=== PATIENT | male | born 1950 | race Caucasian/White ===

== ENCOUNTER 2017-12-25 16:02 | Inpatient (IN) | payer OTHER ==
--- NOTE | 2017-12-25 16:35 | PDOC ---
Rapid Medical Evaluation Time Seen by Provider: 12/25/17 16:32 Medical Evaluation: Allergies Allergy/AdvReac Type Severity Reaction Status Date / Time morphine Allergy Severe Swelling Verified 12/25/17 16:32 12/25/17 16:32 Pt c/o: requesting etoh detox Pt on exam: intoxicated, Pt ordered for: tachy 108 radial pulse P to proceed to ED Discharge Disposition - Diagnosis Alcohol dependence - Referrals - Patient Instructions - Post Discharge Activity
--- NOTE | 2017-12-25 17:45 | PDOC ---
History of Present Illness - History of Present Illness Initial Comments: 12/25/17 18:08 Patient is a 67 M, with PMHx of cancer of the large intestine/cecum (in remission), depression, chronic EtOH abuse, who presents today for acute EtOH withdrawal. Patient states that he drinks daily morning, noon, and night, anything from rum, vodka, and heineken. Patient states that his last alcoholic beverage was around 10 hours ago. He states that he came to the ER today seeking detox. Denies past history of HTN, high cholesterol, diabetes. Social Hx: daily EtOH abuse (at least 3x/day), occasional tobacco and marijuana use. PCP: Anjel Denise ([facility]) Allergies: morphine <Trish Gibbs - Last Filed: 12/25/17 18:56> <Bruce Cortes - Last Filed: 12/25/17 21:01> - General Chief Complaint: Alcohol intoxication Stated Complaint: DETOX Time Seen by Provider: 12/25/17 16:32 Past History <Trish Gibbs - Last Filed: 12/25/17 18:56> - Past Medical History Anemia: Yes (on ferous sulfate once a day) Asthma: No Cancer: Yes (cancer of coecum s/p right hemicolectomy in 2003) Cardiac Disorders: No CVA: No COPD: No CHF: No Dementia: No Diabetes: No GI Disorders: No Disorders: No HTN: No Hypercholesterolemia: No Kidney Stones: No Liver Disease: No Seizures: No Thyroid Disease: No - Surgical History Abdominal Surgery: Yes (s/p right hemicolectomy for cancer of coecum in 2003) Appendectomy: No Cardiac Surgery: No Cholecystectomy: No Lung Surgery: No Neurologic Surgery: No Orthopedic Surgery: No - Reproductive History Testicular Surgery: No - Suicide/Smoking/Psychosocial Hx Smoking History: Never smoked Number of Cigarettes Smoked Daily: 4 Information on smoking cessation initiated: Yes Hx Alcohol Use: Yes Drug/Substance Use Hx: No Substance Use Type: Alcohol Hx Substance Use Treatment: Yes ([facility] 10/25/14 TO 10/30/14) <Bruce Cortes - Last Filed: 12/25/17 21:01> - Past Medical History Allergies/Adverse Reactions: Allergies Allergy/AdvReac Type Severity Reaction Status Date / Time morphine Allergy Severe Swelling Verified 12/25/17 16:32 Home Medications: Ambulatory Orders Quetiapine Fumarate [Seroquel -] 12.5 mg PO HS 12/25/17 Review of Systems - Review of Systems Comments:: 12/25/17 18:09 CONSTITUTIONAL: No fever, no chills, no fatigue EYES: No visual changes ENT: No ear pain, no sore throat CARDIOVASCULAR: No chest pain, no palpitations RESPIRATORY: No cough, no SOB GI: No abdominal pain, no nausea, no vomiting, no constipation, no diarrhea GENITOURINARY: No dysuria, no frequency, no hematuria MUSKULOSKELETAL: No back pain, no joint pain, no myalgias SKIN: No rash NEURO: No headache <Trish Gibbs - Last Filed: 12/25/17 18:56> *Physical Exam - Vital Signs Last Vital Signs Temp Pulse Resp BP Pulse Ox 97.5 F L 132 H 20 135/81 96 12/25/17 16:32 12/25/17 16:32 12/25/17 16:32 12/25/17 16:32 12/25/17 16:32 - Physical Exam Comments: 12/25/17 18:56 CONSTITUTIONAL: Awake. Alert, mildly tremulous. Anxious appearing HEAD: Normocephalic; atraumatic EYES: PERRL; EOM intact ENT: External appears normal; normal oropharynx. Poor dentition. Dry mucosa. NECK: Supple; nontender; no cervical lymphadenopathy CARD: Tachycardic. Normal S1, S2; no murmurs, rubs, or gallops RESP: Normal chest excursion with respiration; breath sounds clear and equal bilaterally; no wheezes, rhonchi, or rales ABD: Soft, non-distended; non-tender; no palpable organomegaly, no palpable hernias EXT: Normal ROM in all four extremities; non-tender to palpation; distal pulses intact SKIN: Warm, dry, no rash NEURO: No focal neurological deficiencies <Trish Gibbs - Last Filed: 12/25/17 18:56> - Vital Signs Last Vital Signs Temp Pulse Resp BP Pulse Ox 97.5 F L 132 H 20 135/81 96 12/25/17 16:32 12/25/17 16:32 12/25/17 16:32 12/25/17 16:32 12/25/17 16:32 <Bruce Cortes - Last Filed: 12/25/17 21:01> Heart Score/ECG Review - ECG Intrepretation Comment:: 12/25/17 18:01 Sinus tachycardia Vent. rate 122 bpm <Trish Gibbs - Last Filed: 12/25/17 18:56> ED Treatment Course - LABORATORY CBC & Chemistry Diagram: 12/25/17 18:24 12/25/17 18:24 <Trish Gibbs - Last Filed: 12/25/17 18:56> - LABORATORY CBC & Chemistry Diagram: 12/25/17 18:24 12/25/17 18:24 <Bruce Cortes - Last Filed: 12/25/17 21:01> Medical Decision Making - Medical Decision Making 12/25/17 19:05 Patient is 67-year-old male who presents to the ER with signs and symptoms of acute alcohol withdrawal. Patient's tremulous and tachycardic. Last: Drank was more than 10 hours prior to arrival. Will administer benzodiazepines for alcohol withdrawal, will hydrate, we'll administer multivitamins, folic acid and thiamine; we'll obtain CBC/CMP/magnesium/EKG/chest x-ray. Will consider inpatient admission for acute alcohol withdrawal. 12/25/17 20:57 Patient reassessed. Patient is less tachycardic and less tremulous. CBC reveals minimal leukocytosis with predominance of neutrophils. CMP reveals decreased sodium bicarbonate and increased anion gap with normal glucose and elevated alcohol Level likely consistent with alcoholic ketoacidosis. Patient received D5NS and will continue receiving dextrose containing fluids. Will continue administering Ativan for alcohol withdrawal. Given patient's history of DTs in the past he will require inpatient admission. <Bruce Cortes - Last Filed: 12/25/17 21:01> *DC/Admit/Observation/Transfer - Attestations Scribe Attestion: 12/25/17 18:58 Documentation prepared by Trish Gibbs, acting as medical technologist for Bruce Cortes MD. <Trish Gibbs - Last Filed: 12/25/17 18:56> - Discharge Dispostion Admit: Yes - Attestations Physician Attestion: 12/25/17 19:05 The documentation was prepared by the scribe under my direct supervision. I have reviewed the documentation which correctly represents the findings, medical decision-making and critical action taken by me. <Bruce Cortes - Last Filed: 12/25/17 21:01> Diagnosis at time of Disposition: Alcoholic ketoacidosis Alcohol withdrawal Qualifiers: Complication of substance-induced condition: with unspecified complication Qualified Code(s): F10.239 - Alcohol dependence with withdrawal, unspecified - Discharge Dispostion Condition at time of disposition: Fair
[2017-12-25] MEDS ORDERED: THIAMINE HCL 200 MG/2 ML VIAL IVPB ONE (17:53)
[2017-12-25] MEDS ORDERED: FOLIC ACID 1 MG TABLET (FP) PO ONE (17:53)
[2017-12-25] MEDS ORDERED: DEXTROSE 5%-NORMAL SALINE 1,000 ML IV ONE (17:53)
[2017-12-25] MEDS ORDERED: NORMAL SALINE IV ONE ×2 (18:04→18:05)
[2017-12-25] MEDS ORDERED: DEXTROSE 5% IV ONE (18:04)
[2017-12-25] MEDS ORDERED: MULTIVIT IV ONE ×2 (18:04→18:05)
[2017-12-25] MEDS ORDERED: DEXTROSE IV ONE (18:05)
[2017-12-25 18:31] LABS: BASO % 0.2 % (0-2.0); HEMATOCRIT 43.9 % (35.4-49); HEMOGLOBIN 14.9 GM/dL (11.7-16.9); LYMPH % 11.5 % (8-40); MCH 31.5 pg (25.7-33.7); MCHC 33.8 g/dl (32.0-35.9); MEAN CELL VOLUME 93.1 fl (80-96); MEAN PLT VOLUME 8.1 fl (7.5-11.1); MONO % 2.1 % (3.8-10.2); NEUT % 86.2 % (42.8-82.8); PLATELET COUNT 233 K/MM3 (134-434); RBC 4.72 M/mm3 (4.00-5.60); RDW 13.4 % (11.9-15.9); WHITE BLOOD COUNT 12.1 K/mm3 (4.0-10.0)
[2017-12-25 19:03] LABS: INR 0.97 (0.82-1.09)
[2017-12-25 19:45] LABS: ALBUMIN 4.2 g/dl (3.4-5.0); ALK PHOS 70 U/L (45-117); ANION GAP 22 (8-16); BILIRUBIN,TOTAL 0.6 mg/dL (0.2-1.0); BLOOD UREA NITROGEN 12 mg/dL (7-18); CALCIUM 8.2 mg/dL (8.5-10.1); CHLORIDE 95 mmol/L (98-107); CO2 18 mmol/L (21-32); CREATININE 1.2 mg/dL (0.7-1.3); GLUCOSE,RANDOM 72 mg/dL (74-106); SGPT/ALT 68 U/L (12-78); SODIUM 135 mmol/L (136-145); TOT PROT 7.5 g/dl (6.4-8.2)
[2017-12-25 19:54] LABS: MAGNESIUM 2.1 mg/dL (1.8-2.4); POTASSIUM 4.2 mmol/L (3.5-5.1); SGOT/AST 70 U/L (15-37)
[2017-12-25] MEDS: DEXTROSE 5%-0.45% SALINE 1,000 ML IV SCH (20:26)
[2017-12-25 20:52] LABS: VENOUS PC02 37.6 mmHg (38-52); VENOUS PH 7.34 (7.32-7.42)
[2017-12-25 20:53] LABS: VENOUS PO2 26.4 mmHg (28-48)
--- NOTE | 2017-12-25 21:12 | HP ---
CHIEF COMPLAINT: intoxicated PCP: HISTORY OF PRESENT ILLNESS: 67 year old male with a past medical history of chronic alcohol abuse, admits to episodes of delirium tremors in past, hx of chronic anemia, hx of colon CA s/ p cecum resection, who brought himself to the ED after drinking 20 drinks of rum for the past five days. He has not eaten anything in three days. He admits to weakness, nausea, vomiting. Denies HESS, fever, chills, sob, chest pain, palpitations, abdominal pain, leg edema, tremors, hallucinations. ER course was notable for: (1)leukocytosis; (2)elevated alcohol level Recent Travel: no PAST MEDICAL HISTORY: alcohol abuse, hx Colon Ca; PAST SURGICAL HISTORY: cecum resection Social History: Smokin cig per week Alcohol:chronic = daily drinker; rum Drugs: marijuana Family History: Allergies morphine Allergy (Severe, Verified 12/25/17 16:32) Swelling ANXIETY HOME MEDICATIONS: Home Medications Medication Instructions Recorded Quetiapine Fumarate [Seroquel -] 12.5 mg PO HS 12/25/17 REVIEW OF SYSTEMS CONSTITUTIONAL: positive: generalized weakness, Absent: fever, chills, diaphoresis, malaise, loss of appetite, weight change HEENT: Absent: rhinorrhea, nasal congestion, throat pain, throat swelling, difficulty swallowing, mouth swelling, ear pain, eye pain, visual changes CARDIOVASCULAR: Absent: chest pain, syncope, palpitations, irregular heart rate, lightheadedness , peripheral edema RESPIRATORY: Absent: cough, shortness of breath, dyspnea with exertion, orthopnea, wheezing, stridor, hemoptysis GASTROINTESTINAL: Positive: nausea, vomiting, Absent: abdominal pain, abdominal distension, diarrhea, constipation, melena, hematochezia GENITOURINARY: Absent: dysuria, frequency, urgency, hesitancy, hematuria, flank pain, genital pain MUSCULOSKELETAL: Absent: myalgia, arthralgia, joint swelling, back pain, neck pain SKIN: Absent: rash, itching, pallor HEMATOLOGIC/IMMUNOLOGIC: Absent: easy bleeding, easy bruising, lymphadenopathy, frequent infections ENDOCRINE: Absent: unexplained weight gain, unexplained weight loss, heat intolerance, cold intolerance NEUROLOGIC: Positive: unsteady gait Absent: headache, focal weakness or paresthesias, dizziness, seizure, mental status changes, bladder or bowel incontinence PSYCHIATRIC: Absent: anxiety, depression, suicidal or homicidal ideation, hallucinations. PHYSICAL EXAMINATION Vital Signs - 24 hr 12/25/17 12/25/17 16:32 18:44 Temperature 97.5 F L Pulse Rate 132 H Pulse Rate [ 110 H Apical] Respiratory 20 16 Rate Blood Pressure 135/81 Blood Pressure 133/78 [Left Arm] O2 Sat by Pulse 96 98 Oximetry (%) GENERAL: Awake, alert, and fully oriented, in no acute distress. HEAD: Normal with no signs of trauma. EYES: Pupils equal, round and reactive to light, extraocular movements intact, sclera anicteric, conjunctiva clear. No lid lag NECK: Normal range of motion, supple without lymphadenopathy, JVD, or masses. LUNGS: mild wheezes, and no crackles. No accessory muscle use. HEART: Regular rate and rhythm, normal S1 and S2 without murmur, rub or gallop. ABDOMEN: Soft, nontender, not distended, normoactive bowel sounds, no guarding, no rebound, no masses. No hepatomegaly or splenomegaly. MUSCULOSKELETAL: Normal range of motion at all joints. No bony deformities or tenderness. No CVA tenderness. UPPER EXTREMITIES: 2+ pulses, warm, well-perfused. No cyanosis. No clubbing. No peripheral edema. LOWER EXTREMITIES: 2+ pulses, warm, well-perfused. No calf tenderness. No peripheral edema. NEUROLOGICAL: Cranial nerves II-XII intact. Normal speech. AAox3; muscle strength in tact ; sensation intact; no tremor / hand flap SKIN: Warm, dry, normal turgor, no rashes or lesions noted, normal capillary refill. Laboratory Results - last 24 hr 12/25/17 12/25/17 12/25/17 18:24 18:24 18:24 WBC 12.1 H D RBC 4.72 Hgb 14.9 D Hct 43.9 D MCV 93.1 MCH 31.5 D MCHC 33.8 RDW 13.4 D Plt Count 233 MPV 8.1 Neutrophils % 86.2 H D Lymphocytes % 11.5 D Monocytes % 2.1 L D Eosinophils % 0.0 D Basophils % 0.2 PT with INR 11.00 INR 0.97 VBG pH POC VBG pCO2 POC VBG pO2 Mixed VBG HCO3 Sodium 135 L Potassium 4.2 Chloride 95 L Carbon Dioxide 18 L D Anion Gap 22 H BUN 12 D Creatinine 1.2 D Creat Clearance w eGFR > 60 Random Glucose 72 L D Calcium 8.2 L Magnesium 2.1 Total Bilirubin 0.6 D AST 70 H D ALT 68 D Alkaline Phosphatase 70 Total Protein 7.5 Albumin 4.2 Alcohol, Quantitative 12/25/17 12/25/17 18:24 20:22 WBC RBC Hgb Hct MCV MCH MCHC RDW Plt Count MPV Neutrophils % Lymphocytes % Monocytes % Eosinophils % Basophils % PT with INR INR VBG pH 7.34 POC VBG pCO2 37.6 L POC VBG pO2 26.4 L Mixed VBG HCO3 19.8 Sodium Potassium Chloride Carbon Dioxide Anion Gap BUN Creatinine Creat Clearance w eGFR Random Glucose Calcium Magnesium Total Bilirubin AST ALT Alkaline Phosphatase Total Protein Albumin Alcohol, Quantitative 306.2 H* ASSESSMENT/PLAN: 67 year old male with a history of chronic alcohol use , hx of DT's, presents to the ER after five day drinking binge. Labs evident for ketoacidoss. #etoh ketoacidosis -IVF -f/u bmp; monitor gap -folate , thiamine -ativan 2mg IVP q4h prn for agitation/withdrawl -start libruim protocol for signs of withdrawl/ CIWA score #leukocytosis: -no fever, if spike get cultures and treat empirically with antibiotics -f/u cxr ; r/o pna FEN: Fluids: s/p bolus; 125mlsNS hr Electrolytes: wnl Diet: regular; monitor neuro ; aspiration precautions of too lethargic to eat VTE: heparin sq Disposition: med surge Case discussed with attending Dr. Bradley Thacker-Pgy2 Problem List - Problem (1) Alcohol dependence Code(s): F10.20 - ALCOHOL DEPENDENCE, UNCOMPLICATED Qualifiers: Substance use status: with intoxication Complication of substance-induced condition: with delirium Qualified Code(s): F10.221 - Alcohol dependence with intoxication delirium (2) Alcohol withdrawal Code(s): F10.239 - ALCOHOL DEPENDENCE WITH WITHDRAWAL, UNSPECIFIED Qualifiers: Complication of substance-induced condition: with delirium Qualified Code(s ): F10.231 - Alcohol dependence with withdrawal delirium (3) Alcoholic ketoacidosis Code(s): E87.2 - ACIDOSIS Visit type - Emergency Visit Emergency Visit: Yes ED Registration Date: 12/25/17 Care time: The patient presented to the Emergency Department on the above date and was hospitalized for further evaluation of their emergent condition. - New Patient This patient is new to me today: Yes Date on this admission: 12/26/17 - Critical Care Critical Care patient: No Hospitalist Screening - Colonoscopy Questionnaire Colonoscopy Questionnaire: Colonoscopy Questionnaire - Patient: 50 - 75 years old and never had a screening colonoscopy: Yes History of colon or rectal polyps, or CA: Yes History of IBD, Crohn's disease or UC: No History of abdominal radiation therapy as a child: No - Relative: 1 with colon or rectal CA, or polyps at age 60 or younger: No Colon or rectal CA diagnosed at age 45 or younger: No Multiple relatives with colon or rectal CA: No (dx in 1993; s/p cecum removal; states he has had repeat colonoscopies; negatve for CA) - Outcome: Screening Result: Positive Screen
[2017-12-25] MEDS ORDERED: LORazepam 2 MG/ML SDV VIAL IVPUSH PRN (21:18)
[2017-12-25] MEDS ORDERED: chlordiazePOXIDE HCL 25 MG CAPSULE PO PRN (21:22)
[2017-12-25 23:31] VITALS: BMI 22.1
[2017-12-26] MEDS: chlordiazePOXIDE HCL 25 MG CAPSULE PO SCH ×4 (00:06→17:46)
[2017-12-26 01:09] LABS: ANION GAP 16 (8-16); BLOOD UREA NITROGEN 10 mg/dL (7-18); CALCIUM 7.8 mg/dL (8.5-10.1); CHLORIDE 96 mmol/L (98-107); CO2 23 mmol/L (21-32); GLUCOSE,RANDOM 161 mg/dL (74-106); POTASSIUM 3.6 mmol/L (3.5-5.1); SODIUM 135 mmol/L (136-145)
[2017-12-26] MEDS: DEXTROSE 5%-0.45% SALINE 1,000 ML IV SCH (02:47)
--- NOTE | 2017-12-26 05:30 | PN ---
Teaching Attending Note Name of Resident: Tala Thacker ATTENDING PHYSICIAN STATEMENT I saw and evaluated the patient. I reviewed the resident's note and discussed the case with the resident. I agree with the resident's findings and plan as documented. SUBJECTIVE: OBJECTIVE: ASSESSMENT AND PLAN: 67 y/o male with chronic alcoholism presented to the hospital for acute intoxication after the patient has been drinking 20 drinks in a day, he stated that he was mixing between Rum and beer. patient stated that he has a history of Delirium Tremens plan: CIWA thaimine and folic acid lorazepam IVP 2mg q4hr prn withdrawal chlorodiazopoxide 50mg q6hrs - hospital protocol if the patient is becoming more agitated then consider transferring the patient to the ICU consider starting dexmedetomidine (precedex) macrocytosis 2/2 to alcoholism and poor PO intake Problem List - Problems (1) Alcohol dependence Code(s): F10.20 - ALCOHOL DEPENDENCE, UNCOMPLICATED Qualifiers: Substance use status: with intoxication Complication of substance-induced condition: with delirium Qualified Code(s): F10.221 - Alcohol dependence with intoxication delirium (2) Alcohol withdrawal Code(s): F10.239 - ALCOHOL DEPENDENCE WITH WITHDRAWAL, UNSPECIFIED Qualifiers: Complication of substance-induced condition: with delirium Qualified Code(s ): F10.231 - Alcohol dependence with withdrawal delirium (3) Alcoholic ketoacidosis Code(s): E87.2 - ACIDOSIS (4) Anemia Code(s): D64.9 - ANEMIA, UNSPECIFIED Qualifiers: Anemia type: B12 deficiency Vitamin B12 deficiency anemia type: other dietary B12 deficiency Qualified Code(s): D51.3 - Other dietary vitamin B12 deficiency anemia
[2017-12-26] MEDS ORDERED: FOLIC ACID INJECTION - 1 MG, THIAMINE HCL 100 MG, MULTIVIT INJECTION ADULT 10 ML in SOD... IVPB ONE (09:43)
[2017-12-26 12:26] LABS: URINE APPEARANCE CLEAR; URINE BILIRUBIN NEGATIVE (NEGATIVE); URINE BLOOD 2+ (NEGATIVE); URINE COLOR YELLOW; URINE GLUCOSE (UA) 1+ (NEGATIVE); URINE KETONE 1+ (NEGATIVE); URINE LEUK ESTERASE NEGATIVE (NEGATIVE); URINE NITRITE NEGATIVE (NEGATIVE); URINE PROTEIN NEGATIVE (NEGATIVE); URINE UROBILINOGEN NEGATIVE mg/dL (0.2-1.0)
[2017-12-26 12:28] LABS: URINE HYALINE CAST 5 /lpf; URINE MUCUS RARE
[2017-12-26 13:55] VITALS: BP 144/79; PULSE 80; TEMP 98.8
--- NOTE | 2017-12-26 15:28 | DS ---
Physical Exam: SUBJECTIVE: Patient seen and examined. c/o "shakes" and agitation. states his last drink was yesterday. has had the shakes in the past and hospitalized once for withdrawal symptoms. denies CP, SOB, fever, chills, N/V/C/D, denies auditory /visual/tactile stimulation, HESS OBJECTIVE: Vital Signs Period Temp Pulse Resp BP Sys/Sahu Pulse Ox Last 24 Hr 97.5 F-98.8 F 80-132 16-20 126-162/63-83 96-98 PHYSICAL EXAM GENERAL: The patient is awake, alert, and fully oriented, +agitation HEAD: Normal with no signs of trauma. EYES: PERRL, extraocular movements intact, sclera anicteric, conjunctiva clear. ENT: Ears normal, nares patent, oropharynx clear without exudates, moist mucous membranes. poor dentition NECK: Trachea midline, full range of motion, supple. LUNGS: Breath sounds equal, clear to auscultation bilaterally, no wheezes, no crackles, no accessory muscle use. HEART: Regular rate and rhythm, S1, S2 without murmur, rub or gallop. ABDOMEN: Soft, nontender, nondistended, normoactive bowel sounds, no guarding, no rebound, no hepatosplenomegaly, no masses. EXTREMITIES: 2+ pulses, warm, well-perfused, no edema. +tremors on outstretched hand NEUROLOGICAL: Cranial nerves II through XII grossly intact. Normal speech, slow gait, able to walk >20 ft unassisted PSYCH: Normal mood, normal affect. SKIN: Warm, dry, normal turgor, no rashes or lesions noted. LABS Laboratory Results - last 24 hr 12/25/17 12/25/17 12/25/17 18:24 18:24 18:24 WBC 12.1 H D RBC 4.72 Hgb 14.9 D Hct 43.9 D MCV 93.1 MCH 31.5 D MCHC 33.8 RDW 13.4 D Plt Count 233 MPV 8.1 Neutrophils % 86.2 H D Lymphocytes % 11.5 D Monocytes % 2.1 L D Eosinophils % 0.0 D Basophils % 0.2 PT with INR 11.00 INR 0.97 VBG pH POC VBG pCO2 POC VBG pO2 Mixed VBG HCO3 Sodium 135 L Potassium 4.2 Chloride 95 L Carbon Dioxide 18 L D Anion Gap 22 H BUN 12 D Creatinine 1.2 D Creat Clearance w eGFR > 60 Random Glucose 72 L D Calcium 8.2 L Magnesium 2.1 Total Bilirubin 0.6 D AST 70 H D ALT 68 D Alkaline Phosphatase 70 Total Protein 7.5 Albumin 4.2 Urine Color Urine Appearance Urine pH Ur Specific Hawi Urine Protein Urine Glucose (UA) Urine Ketones Urine Blood Urine Nitrite Urine Bilirubin Urine Urobilinogen Ur Leukocyte Esterase Urine WBC (Auto) Urine RBC (Auto) Hyaline Casts Urine Mucus Alcohol, Quantitative 12/25/17 12/25/17 12/26/17 18:24 20:22 00:35 WBC RBC Hgb Hct MCV MCH MCHC RDW Plt Count MPV Neutrophils % Lymphocytes % Monocytes % Eosinophils % Basophils % PT with INR INR VBG pH 7.34 POC VBG pCO2 37.6 L POC VBG pO2 26.4 L Mixed VBG HCO3 19.8 Sodium 135 L Potassium 3.6 Chloride 96 L Carbon Dioxide 23 D Anion Gap 16 BUN 10 Creatinine 1.0 Creat Clearance w eGFR Random Glucose 161 H D Calcium 7.8 L Magnesium Total Bilirubin AST ALT Alkaline Phosphatase Total Protein Albumin Urine Color Urine Appearance Urine pH Ur Specific Hawi Urine Protein Urine Glucose (UA) Urine Ketones Urine Blood Urine Nitrite Urine Bilirubin Urine Urobilinogen Ur Leukocyte Esterase Urine WBC (Auto) Urine RBC (Auto) Hyaline Casts Urine Mucus Alcohol, Quantitative 306.2 H* 12/26/17 11:10 WBC RBC Hgb Hct MCV MCH MCHC RDW Plt Count MPV Neutrophils % Lymphocytes % Monocytes % Eosinophils % Basophils % PT with INR INR VBG pH POC VBG pCO2 POC VBG pO2 Mixed VBG HCO3 Sodium Potassium Chloride Carbon Dioxide Anion Gap BUN Creatinine Creat Clearance w eGFR Random Glucose Calcium Magnesium Total Bilirubin AST ALT Alkaline Phosphatase Total Protein Albumin Urine Color Yellow Urine Appearance Clear Urine pH 5.0 Ur Specific Hawi 1.016 Urine Protein Negative Urine Glucose (UA) 1+ H Urine Ketones 1+ H Urine Blood 2+ H Urine Nitrite Negative Urine Bilirubin Negative Urine Urobilinogen Negative Ur Leukocyte Esterase Negative Urine WBC (Auto) 1 Urine RBC (Auto) 8 Hyaline Casts 5 Urine Mucus Rare Alcohol, Quantitative HOSPITAL COURSE: Date of Admission:12/25/17 Date of Discharge: 12/26/17 Admitting diagnosis: ETOH withdrawal Pre hospital course 67 year old male with a past medical history of chronic alcohol abuse, admits to episodes of delirium tremors in past, hx of chronic anemia, hx of colon CA s/ p cecum resection, who brought himself to the ED after drinking 20 drinks of rum for the past five days. He has not eaten anything in three days. He admits to weakness, nausea, vomiting. Denies HESS, fever, chills, sob, chest pain, palpitations, abdominal pain, leg edema, tremors, hallucinations. Subsequent hospital course admtted to medicine. started on IVF and banana bag and librium protocol. pt was transferred to [facility] to complete detox. pt was able to walk >20 ft unassisted. advised to abstain from drinking. Minutes to complete discharge: 40 Discharge Summary Reason For Visit: ALCOHOL WITHDRAWAL SYNDROME Current Active Problems Alcohol dependence (Acute 10/27/14) Alcohol withdrawal (Acute) Alcoholic ketoacidosis (Acute) Condition: Guarded - Instructions Diet, Activity, Other Instructions: You were admitted to the hospital to be detoxed from alcohol. You are being transferred to [facility] to complete detox It is very important that you abstain from alcohol as this is detrimental to your health. Follow instructions given by [facility] on discharge Follow up with your primary care doctor once you complete detox. If you do not have one information on one has been provided. Referrals: Sunday Silva MD [Staff Physician] - Disposition: TRANSFER ACUTE CARE/OTHER HOSP - Home Medications Comprehensive Discharge Medication List: Ambulatory Orders Quetiapine Fumarate [Seroquel -] 12.5 mg PO HS 12/25/17 This patient is new to me today: Yes Date on this admission: 12/26/17 Emergency Visit: Yes ED Registration Date: 12/25/17 Care time: The patient presented to the Emergency Department on the above date and was hospitalized for further evaluation of their emergent condition. Critical Care patient: No - Discharge Referral Referred to [facility] No
[2017-12-26] MEDS ORDERED: MULTIVIT INJ. ADULT COMBO WITH VIT K 1 COMBO 10 ML VIAL IV ONE (17:53)
[2017-12-26] MEDS ORDERED: chlordiazePOXIDE HCL 25 MG CAPSULE PO SCH (23:00)
[2017-12-27] MEDS ORDERED: chlordiazePOXIDE 5 MG CAPSULE PO SCH (23:00)
--- NOTE | 2017-12-29 11:41 | EKG ---
Test Reason : Blood Pressure : / mmHG Vent. Rate : 122 BPM Atrial Rate : 122 BPM P-R Int : 140 ms QRS Dur : 094 ms QT Int : 320 ms P-R-T Axes : 061 057 060 degrees QTc Int : 456 ms SINUS TACHYCARDIA OTHERWISE NORMAL ECG WHEN COMPARED WITH ECG OF 10-OCT-2016 19:49, VENT. RATE HAS INCREASED BY 48 BPM Confirmed by MD Chong Daniel ([id number]) on 12/29/2017 11:40:55 AM Referred By: Confirmed By:Hussain Chong MD
== END 2017-12-26 18:58 | disposition short-term general hospital (02) | DRG 897 ==
LOC: JER 16:02 → JERBED 20:55 → J6S 22:58
PROVIDERS: ADMIT Internal Medicine; ATTEND Internal Medicine
PROC: HZ2ZZZZ Detoxification Services for Substance Abuse Treatment (ICD-10-PCS; principal; 2017-12-25)
DX: F10.230 Alcohol dependence with withdrawal, uncomplicated (principal); E87.2 Acidosis; F10.220 Alcohol dependence with intoxication, uncomplicated; Y90.8 Blood alcohol level of 240 mg/100 ml or more; D72.829 Elevated white blood cell count, unspecified; Z85.038 Personal history of other malignant neoplasm of large intestine; F32.9 Major depressive disorder, single episode, unspecified; D64.9 Anemia, unspecified; Z90.49 Acquired absence of other specified parts of digestive tract; F12.10 Cannabis abuse, uncomplicated; F17.210 Nicotine dependence, cigarettes, uncomplicated
CPT/HCPCS: 36415; 71045-TC-FY; 80048; 80053; 80307; 81003; 81015; 82803; 83735; 85025; 85027; 85610; 86593; 93005; 93010; 99285-25; J0735; J7030

== ENCOUNTER 2017-12-26 19:20 | Inpatient (IN) | payer OTHER ==
[2017-12-26 19:46] VITALS: BMI 23.0
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
[2017-12-26] MEDS ORDERED: guaiFENesin/D-METHORPHAN HB 10 ML UNIT-DOSE CUPS PO PRN (20:34)
[2017-12-26] MEDS ORDERED: IBUPROFEN 400 MG TABLET (FP) PO PRN (20:34)
[2017-12-26] MEDS ORDERED: MAGNESIUM HYDROX 2400MG/30ML ORAL SUSPENSION 30 ML CUP PO PRN (20:34)
[2017-12-26] MEDS ORDERED: P-EPHED 60MG/TRIPROLIDI 2.5MG TABLET PO PRN (20:34)
[2017-12-26] MEDS ORDERED: MAGNESIUM CITRATE 300 ML BOTTLE PO PRN (20:34)
[2017-12-26] MEDS ORDERED: MAG HYDROX/AL HYDROX/SIMETH 30 ML UNIT-DOSE CUP PO PRN (20:34)
[2017-12-26] MEDS ORDERED: NICOTINE POLACRILEX 2 MG GUM BC PRN (20:34)
[2017-12-26] MEDS ORDERED: chlordiazePOXIDE HCL 25 MG CAPSULE PO ONE (20:34)
[2017-12-26] MEDS ORDERED: MENTHOL/PHENOL 1 EACH UD MM PRN (20:34)
[2017-12-26] MEDS ORDERED: ACETAMINOPHEN 325 MG TABLET (FP) PO PRN (20:34)
[2017-12-26] MEDS ORDERED: LOPERAMIDE HCL 2 MG CAPSULE PO PRN (20:34)
[2017-12-26] MEDS: THIAMINE HCL 100 MG TABLET (FP) PO SCH (22:24)
[2017-12-26] MEDS: chlordiazePOXIDE HCL 25 MG CAPSULE PO SCH (22:24)
[2017-12-27] MEDS: chlordiazePOXIDE HCL 25 MG CAPSULE PO PRN ×2 (01:49→12:38)
[2017-12-27] MEDS: hydrOXYzine PAMOATE 50 MG CAPSULE (FP) PO PRN ×2 (01:49→22:36)
[2017-12-27 02:09] LABS: URINE APPEARANCE CLEAR; URINE BILIRUBIN NEGATIVE (NEGATIVE); URINE BLOOD 2+ (NEGATIVE); URINE COLOR YELLOW; URINE GLUCOSE (UA) NEGATIVE (NEGATIVE); URINE KETONE 1+ (NEGATIVE); URINE LEUK ESTERASE NEGATIVE (NEGATIVE); URINE NITRITE NEGATIVE (NEGATIVE); URINE PROTEIN NEGATIVE (NEGATIVE)
[2017-12-27 02:23] LABS: URINE BACTERIA RARE /hpf (NONE SEEN); URINE HYALINE CAST 1 /lpf; URINE MUCUS RARE
[2017-12-27] MEDS ORDERED: chlordiazePOXIDE HCL 25 MG CAPSULE PO ONE ×3 (02:32→14:00)
[2017-12-27] MEDS: cloNIDine HCL 0.1 MG TABLET PO PRN ×2 (02:55→17:37)
[2017-12-27] MEDS: chlordiazePOXIDE HCL 25 MG CAPSULE PO SCH ×4 (07:20→22:36)
[2017-12-27 09:55] LABS: HEMATOCRIT 36.6 % (35.4-49); HEMOGLOBIN 12.1 GM/dL (11.7-16.9); MCH 30.8 pg (25.7-33.7); MCHC 33.2 g/dl (32.0-35.9); MEAN CELL VOLUME 92.9 fl (80-96); MEAN PLT VOLUME 8.5 fl (7.5-11.1); PLATELET COUNT 109 K/MM3 (134-434); RBC 3.94 M/mm3 (4.00-5.60); RDW 13.3 % (11.9-15.9); WHITE BLOOD COUNT 4.2 K/mm3 (4.0-10.0)
[2017-12-27 10:05] LABS: ALBUMIN 3.1 g/dl (3.4-5.0); ANION GAP 6 (8-16); BLOOD UREA NITROGEN 6 mg/dL (7-18); CALCIUM 7.8 mg/dL (8.5-10.1); CHLORIDE 103 mmol/L (98-107); CO2 29 mmol/L (21-32); GLUCOSE,RANDOM 100 mg/dL (74-106); POTASSIUM 3.2 mmol/L (3.5-5.1); SODIUM 138 mmol/L (136-145)
[2017-12-27 10:10] LABS: ALK PHOS 54 U/L (45-117); BILIRUBIN,TOTAL 1.5 mg/dL (0.2-1.0); CREATININE 0.8 mg/dL (0.7-1.3); SGOT/AST 37 U/L (15-37); SGPT/ALT 43 U/L (12-78)
[2017-12-27] MEDS: PRENATAL VITAMINS W/ FOLIC ACID TABLET (FP) PO SCH (11:01)
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
--- NOTE | 2017-12-27 13:42 | PN ---
S CIWA - CIWA Score Nausea/Vomitin-Mild Nausea/No Vomiting Muscle Tremors: 5 Anxiety: 5 Agitation: 5 Paroxysmal Sweats: 3 Orientation: 0-Oriented Tacttile Disturbances: 1-Very Mild Itch/Numbness Auditory Disturbances: 0-None Visual Disturbances: 0-None Headache: 1-Very Mild CIWA-Ar Total Score: 21 BHS Progress Note (SOAP) Subjective: sweat tremor anxiety restlessness irritability Objective: 12/27/17 13:40 Vital Signs Temperature 96 F L 12/27/17 10:00 Pulse Rate 90 12/27/17 10:00 Respiratory Rate 20 12/27/17 10:00 Blood Pressure 136/81 12/27/17 10:00 O2 Sat by Pulse Oximetry (%) Laboratory Last Values WBC 4.2 K/mm3 (4.0-10.0) D 12/27/17 07:20 RBC 3.94 M/mm3 (4.00-5.60) L 12/27/17 07:20 Hgb 12.1 GM/dL (11.7-16.9) D 12/27/17 07:20 Hct 36.6 % (35.4-49) D 12/27/17 07:20 MCV 92.9 fl (80-96) 12/27/17 07:20 MCH 30.8 pg (25.7-33.7) 12/27/17 07:20 MCHC 33.2 g/dl (32.0-35.9) 12/27/17 07:20 RDW 13.3 % (11.9-15.9) 12/27/17 07:20 Plt Count 109 K/MM3 (134-434) L D 12/27/17 07:20 MPV 8.5 fl (7.5-11.1) 12/27/17 07:20 Sodium 138 mmol/L (136-145) 12/27/17 07:20 Potassium 3.2 mmol/L (3.5-5.1) L 12/27/17 07:20 Chloride 103 mmol/L (98-107) 12/27/17 07:20 Carbon Dioxide 29 mmol/L (21-32) D 12/27/17 07:20 Anion Gap 6 (8-16) L 12/27/17 07:20 BUN 6 mg/dL (7-18) L D 12/27/17 07:20 Creatinine 0.8 mg/dL (0.7-1.3) 12/27/17 07:20 Creat Clearance w eGFR > 60 (>60) 12/27/17 07:20 Random Glucose 100 mg/dL (74-106) D 12/27/17 07:20 Calcium 7.8 mg/dL (8.5-10.1) L 12/27/17 07:20 Total Bilirubin 1.5 mg/dL (0.2-1.0) H D 12/27/17 07:20 AST 37 U/L (15-37) D 12/27/17 07:20 ALT 43 U/L (12-78) D 12/27/17 07:20 Alkaline Phosphatase 54 U/L (45-117) D 12/27/17 07:20 Total Protein 6.0 g/dl (6.4-8.2) L 12/27/17 07:20 Albumin 3.1 g/dl (3.4-5.0) L D 12/27/17 07:20 Urine Color Yellow 12/26/17 22:39 Urine Appearance Clear 12/26/17 22:39 Urine pH 6.0 (5.0-8.0) 12/26/17 22:39 Ur Specific [place] 1.011 (1.001-1.035) 12/26/17 22:39 Urine Protein Negative (NEGATIVE) 12/26/17 22:39 Urine Glucose (UA) Negative (NEGATIVE) 12/26/17 22:39 Urine Ketones 1+ (NEGATIVE) H 12/26/17 22:39 Urine Blood 2+ (NEGATIVE) H 12/26/17 22:39 Urine Nitrite Negative (NEGATIVE) 12/26/17 22:39 Urine Bilirubin Negative (NEGATIVE) 12/26/17 22:39 Urine Urobilinogen 2.0 mg/dL (0.2-1.0) 12/26/17 22:39 Ur Leukocyte Esterase Negative (NEGATIVE) 12/26/17 22:39 Urine WBC (Auto) 2 /hpf (3-5) 12/26/17 22:39 Urine RBC (Auto) 35 /hpf (0-3) 12/26/17 22:39 Urine Bacteria Rare /hpf (NONE SEEN) 12/26/17 22:39 Hyaline Casts 1 /lpf 12/26/17 22:39 Urine Mucus Rare 12/26/17 22:39 RPR Titer Nonreactive (NONREACTIVE) 12/27/17 07:20 lab noted Assessment: 12/27/17 13:47 withdrawal sx low potassium serum low calcium serum Plan: continue detox repeat K+ 12/29/17
[2017-12-27] MEDS: POTASSIUM CHLORIDE ORAL LIQUID 20 MEQ/15 ML PO SCH ×2 (14:42→22:36)
[2017-12-27] MEDS: GABAPENTIN 100 MG CAPSULE (FP) PO SCH ×2 (14:50→22:36)
[2017-12-27] MEDS: CALCIUM (OYSTER SHELL) 500 MG TABLET (FP) PO SCH (17:37)
--- NOTE | 2017-12-27 18:46 | EKG ---
Test Reason : Blood Pressure : / mmHG Vent. Rate : 077 BPM Atrial Rate : 077 BPM P-R Int : 150 ms QRS Dur : 090 ms QT Int : 364 ms P-R-T Axes : 056 060 048 degrees QTc Int : 411 ms NORMAL SINUS RHYTHM NORMAL ECG WHEN COMPARED WITH ECG OF 25-DEC-2017 16:41, VENT. RATE HAS DECREASED BY 45 BPM Confirmed by MD PATTI, ARISTEO ([id number]) on 12/27/2017 6:46:01 PM Referred By: Marques Desai Confirmed By:ARISTEO ARMSTRONG MD
[2017-12-27] MEDS ORDERED: QUEtiapine FUMARATE 25 MG TABLET (FP) PO SCH (22:00)
[2017-12-27] MEDS: THIAMINE HCL 100 MG TABLET (FP) PO SCH (22:36)
[2017-12-28] MEDS: GABAPENTIN 100 MG CAPSULE (FP) PO SCH ×2 (06:05→14:30)
[2017-12-28] MEDS: chlordiazePOXIDE HCL 25 MG CAPSULE PO SCH ×3 (06:05→17:23)
[2017-12-28] MEDS: PRENATAL VITAMINS W/ FOLIC ACID TABLET (FP) PO SCH (10:38)
[2017-12-28] MEDS: CALCIUM (OYSTER SHELL) 500 MG TABLET (FP) PO SCH (10:38)
[2017-12-28] MEDS: POTASSIUM CHLORIDE ORAL LIQUID 20 MEQ/15 ML PO SCH (10:38)
--- NOTE | 2017-12-28 11:59 | PN ---
S CIWA - CIWA Score Nausea/Vomitin Muscle Tremors: 3 Anxiety: 3 Agitation: 2 Paroxysmal Sweats: 1-Minimal Palms Moist Orientation: 0-Oriented Tacttile Disturbances: 1-Very Mild Itch/Numbness Auditory Disturbances: 1-Very Mild Visual Disturbances: 0-None Headache: 2-Mild CIWA-Ar Total Score: 16 BHS Progress Note (SOAP) Subjective: ALERT,IRRITABLE,ANXIOUS,INTERRUPTED SLEEP,TREMOR Objective: 12/28/17 11:56 Vital Signs Temperature 97.0 F L 12/28/17 11:11 Pulse Rate 96 H 12/28/17 11:11 Respiratory Rate 20 12/28/17 11:11 Blood Pressure 121/80 12/28/17 11:11 O2 Sat by Pulse Oximetry (%) EKG NSR,NORMAL ECG Laboratory Last Values WBC 4.2 K/mm3 (4.0-10.0) D 12/27/17 07:20 RBC 3.94 M/mm3 (4.00-5.60) L 12/27/17 07:20 Hgb 12.1 GM/dL (11.7-16.9) D 12/27/17 07:20 Hct 36.6 % (35.4-49) D 12/27/17 07:20 MCV 92.9 fl (80-96) 12/27/17 07:20 MCH 30.8 pg (25.7-33.7) 12/27/17 07:20 MCHC 33.2 g/dl (32.0-35.9) 12/27/17 07:20 RDW 13.3 % (11.9-15.9) 12/27/17 07:20 Plt Count 109 K/MM3 (134-434) L D 12/27/17 07:20 MPV 8.5 fl (7.5-11.1) 12/27/17 07:20 Sodium 138 mmol/L (136-145) 12/27/17 07:20 Potassium 3.2 mmol/L (3.5-5.1) L 12/27/17 07:20 Chloride 103 mmol/L (98-107) 12/27/17 07:20 Carbon Dioxide 29 mmol/L (21-32) D 12/27/17 07:20 Anion Gap 6 (8-16) L 12/27/17 07:20 BUN 6 mg/dL (7-18) L D 12/27/17 07:20 Creatinine 0.8 mg/dL (0.7-1.3) 12/27/17 07:20 Creat Clearance w eGFR > 60 (>60) 12/27/17 07:20 Random Glucose 100 mg/dL (74-106) D 12/27/17 07:20 Calcium 7.8 mg/dL (8.5-10.1) L 12/27/17 07:20 Total Bilirubin 1.5 mg/dL (0.2-1.0) H D 12/27/17 07:20 AST 37 U/L (15-37) D 12/27/17 07:20 ALT 43 U/L (12-78) D 12/27/17 07:20 Alkaline Phosphatase 54 U/L (45-117) D 12/27/17 07:20 Total Protein 6.0 g/dl (6.4-8.2) L 12/27/17 07:20 Albumin 3.1 g/dl (3.4-5.0) L D 12/27/17 07:20 Urine Color Yellow 12/26/17 22:39 Urine Appearance Clear 12/26/17 22:39 Urine pH 6.0 (5.0-8.0) 12/26/17 22:39 Ur Specific [place] 1.011 (1.001-1.035) 12/26/17 22:39 Urine Protein Negative (NEGATIVE) 12/26/17 22:39 Urine Glucose (UA) Negative (NEGATIVE) 12/26/17 22:39 Urine Ketones 1+ (NEGATIVE) H 12/26/17 22:39 Urine Blood 2+ (NEGATIVE) H 12/26/17 22:39 Urine Nitrite Negative (NEGATIVE) 12/26/17 22:39 Urine Bilirubin Negative (NEGATIVE) 12/26/17 22:39 Urine Urobilinogen 2.0 mg/dL (0.2-1.0) 12/26/17 22:39 Ur Leukocyte Esterase Negative (NEGATIVE) 12/26/17 22:39 Urine WBC (Auto) 2 /hpf (3-5) 12/26/17 22:39 Urine RBC (Auto) 35 /hpf (0-3) 12/26/17 22:39 Urine Bacteria Rare /hpf (NONE SEEN) 12/26/17 22:39 Hyaline Casts 1 /lpf 12/26/17 22:39 Urine Mucus Rare 12/26/17 22:39 RPR Titer Nonreactive (NONREACTIVE) 12/27/17 07:20 Assessment: 12/28/17 11:57 WITHDRAWAL SYMPTOM Plan: CONTINUE DETOX,ON K REPLACEMENT FOR HYPOKALEMIA,REPEAT CMP,UA TODAY
[2017-12-28] MEDS: chlordiazePOXIDE HCL 25 MG CAPSULE PO PRN (13:59)
[2017-12-28] MEDS: cloNIDine HCL 0.1 MG TABLET PO PRN (17:22)
[2017-12-28 18:21] LABS: URINE APPEARANCE SLCLOUDY; URINE BILIRUBIN NEGATIVE (NEGATIVE); URINE BLOOD NEGATIVE (NEGATIVE); URINE COLOR AMBER; URINE GLUCOSE (UA) NEGATIVE (NEGATIVE); URINE KETONE NEGATIVE (NEGATIVE); URINE LEUK ESTERASE NEGATIVE (NEGATIVE); URINE NITRITE NEGATIVE (NEGATIVE); URINE PROTEIN NEGATIVE (NEGATIVE)
[2017-12-28 18:42] VITALS: BP 146/86; PULSE 69; TEMP 97.9
--- NOTE | 2017-12-28 19:38 | DS ---
[facility] Detox Discharge Summary Admission Date: 12/26/17 Discharge Date: 12/28/17 - History Present History: Alcohol Dependence, Cannabis Dependence Additional Comments: Patient encourage to complete detox. Patient advised extensively on the risk of leaving AMA. Patient verbalized understanding. - Physical Exam Results Vital Signs: Vital Signs Temperature 97.9 F 12/28/17 18:42 Pulse Rate 69 12/28/17 18:42 Respiratory Rate 18 12/28/17 18:42 Blood Pressure 146/86 12/28/17 18:42 O2 Sat by Pulse Oximetry (%) Pertinent Admission Physical Exam Findings: Vital Signs Temperature 97.9 F 12/28/17 18:42 Pulse Rate 69 12/28/17 18:42 Respiratory Rate 18 12/28/17 18:42 Blood Pressure 146/86 12/28/17 18:42 O2 Sat by Pulse Oximetry (%) Laboratory Last Values WBC 4.2 K/mm3 (4.0-10.0) D 12/27/17 07:20 RBC 3.94 M/mm3 (4.00-5.60) L 12/27/17 07:20 Hgb 12.1 GM/dL (11.7-16.9) D 12/27/17 07:20 Hct 36.6 % (35.4-49) D 12/27/17 07:20 MCV 92.9 fl (80-96) 12/27/17 07:20 MCH 30.8 pg (25.7-33.7) 12/27/17 07:20 MCHC 33.2 g/dl (32.0-35.9) 12/27/17 07:20 RDW 13.3 % (11.9-15.9) 12/27/17 07:20 Plt Count 109 K/MM3 (134-434) L D 12/27/17 07:20 MPV 8.5 fl (7.5-11.1) 12/27/17 07:20 Sodium 138 mmol/L (136-145) 12/27/17 07:20 Potassium 3.2 mmol/L (3.5-5.1) L 12/27/17 07:20 Chloride 103 mmol/L (98-107) 12/27/17 07:20 Carbon Dioxide 29 mmol/L (21-32) D 12/27/17 07:20 Anion Gap 6 (8-16) L 12/27/17 07:20 BUN 6 mg/dL (7-18) L D 12/27/17 07:20 Creatinine 0.8 mg/dL (0.7-1.3) 12/27/17 07:20 Creat Clearance w eGFR > 60 (>60) 12/27/17 07:20 Random Glucose 100 mg/dL (74-106) D 12/27/17 07:20 Calcium 7.8 mg/dL (8.5-10.1) L 12/27/17 07:20 Total Bilirubin 1.5 mg/dL (0.2-1.0) H D 12/27/17 07:20 AST 37 U/L (15-37) D 12/27/17 07:20 ALT 43 U/L (12-78) D 12/27/17 07:20 Alkaline Phosphatase 54 U/L (45-117) D 12/27/17 07:20 Total Protein 6.0 g/dl (6.4-8.2) L 12/27/17 07:20 Albumin 3.1 g/dl (3.4-5.0) L D 12/27/17 07:20 Urine Color [place] 12/28/17 15:00 Urine Appearance Slcloudy 12/28/17 15:00 Urine pH 7.0 (5.0-8.0) 12/28/17 15:00 Ur Specific [place] 1.016 (1.001-1.035) 12/28/17 15:00 Urine Protein Negative (NEGATIVE) 12/28/17 15:00 Urine Glucose (UA) Negative (NEGATIVE) 12/28/17 15:00 Urine Ketones Negative (NEGATIVE) 12/28/17 15:00 Urine Blood Negative (NEGATIVE) 12/28/17 15:00 Urine Nitrite Negative (NEGATIVE) 12/28/17 15:00 Urine Bilirubin Negative (NEGATIVE) 12/28/17 15:00 Urine Urobilinogen 2.0 mg/dL (0.2-1.0) 12/28/17 15:00 Ur Leukocyte Esterase Negative (NEGATIVE) 12/28/17 15:00 Urine WBC (Auto) 2 /hpf (3-5) 12/26/17 22:39 Urine RBC (Auto) 35 /hpf (0-3) 12/26/17 22:39 Urine Bacteria Rare /hpf (NONE SEEN) 12/26/17 22:39 Hyaline Casts 1 /lpf 12/26/17 22:39 Urine Mucus Rare 12/26/17 22:39 RPR Titer Nonreactive (NONREACTIVE) 12/27/17 07:20 - Medication Discharge Medications: Ambulatory Orders Quetiapine Fumarate [Seroquel -] 12.5 mg PO HS 12/25/17 - Diagnosis (1) Alcohol dependence with withdrawal, uncomplicated Current Visit: Yes Status: Acute (2) Hypokalemia Current Visit: Yes Status: Acute (3) Substance-induced sleep disorder Current Visit: Yes Status: Acute - AMA Did Patient Leave Against Medical Advice: Yes
[2017-12-28] MEDS ORDERED: chlordiazePOXIDE 5 MG CAPSULE PO SCH (23:00)
[2017-12-29] MEDS ORDERED: chlordiazePOXIDE HCL 10 MG CAPSULE PO SCH (23:00)
== END 2017-12-28 19:50 | disposition left against medical advice (07) | DRG 894 ==
LOC: YASAS 19:20 → Y6N 19:49
PROVIDERS: ADMIT Internal Medicine; ATTEND Internal Medicine
PROC: HZ2ZZZZ Detoxification Services for Substance Abuse Treatment (ICD-10-PCS; principal; 2017-12-27)
DX: F10.230 Alcohol dependence with withdrawal, uncomplicated (principal); F19.282 Other psychoactive substance dependence with psychoactive substance-induced sleep disorder; F33.1 Major depressive disorder, recurrent, moderate; F12.20 Cannabis dependence, uncomplicated; F17.210 Nicotine dependence, cigarettes, uncomplicated; E87.6 Hypokalemia; D51.3 Other dietary vitamin B12 deficiency anemia; Z85.038 Personal history of other malignant neoplasm of large intestine; Z90.49 Acquired absence of other specified parts of digestive tract
CPT/HCPCS: 36415; 80053; 81003; 81015; 85027; 86593; 93005; 93010; J0735

== ENCOUNTER 2021-01-17 09:55 | Inpatient (IN) | payer OTHER ==
[2021-01-17 10:17] VITALS: BMI 20.3
[2021-01-17] MEDS ORDERED: chlordiazePOXIDE HCL 25 MG CAPSULE PO ONE (11:08)
[2021-01-17] MEDS ORDERED: FOLIC ACID INJECTION - 1 MG, THIAMINE HCL 100 MG, MULTIVIT INJECTION ADULT 10 ML in SOD... IVPB ONE (11:08)
[2021-01-17] MEDS ORDERED: chlordiazePOXIDE HCL 25 MG CAPSULE ONE ×2 (11:27→17:59)
[2021-01-17 12:11] LABS: BASO % 0.1 % (0-2.0); HEMATOCRIT 27.7 % (35.4-49); HEMOGLOBIN 9.5 GM/dL (11.7-16.9); LYMPH % 9.1 % (8-40); MCHC 34.3 g/dl (32.0-35.9); MEAN CELL VOLUME 96.3 fl (80-96); MEAN PLT VOLUME 9.5 fl (7.5-11.1); NEUT % 82.8 % (42.8-82.8); PLATELET COUNT 124 K/MM3 (134-434); RBC 2.88 M/mm3 (4.00-5.60); RDW 14.7 % (11.9-15.9); WHITE BLOOD COUNT 5.5 K/mm3 (4.0-10.0)
[2021-01-17 12:20] LABS: INR 0.89 (0.83-1.09); PROTHROMBIN TIME (PATIENT) 10.8 SEC (9.7-13.0)
[2021-01-17 12:22] LABS: ACTIVATED PTT 25.1 SECONDS (25.2-36.5)
[2021-01-17 13:04] LABS: CHLORIDE 92 mmol/L (98-107); POTASSIUM 3.2 mmol/L (3.5-5.1); SODIUM 131 mmol/L (136-145)
[2021-01-17] MEDS ORDERED: SODIUM CHLORIDE 0.9% 500 ML INFUS.BAG IV ONE (13:06)
[2021-01-17 13:07] LABS: ALBUMIN 4.1 g/dl (3.4-5.0); CALCIUM 10.6 mg/dL (8.5-10.1); GLUCOSE,RANDOM 113 mg/dL (74-106)
[2021-01-17 13:08] LABS: ANION GAP 11 MMOL/L (8-16); BLOOD UREA NITROGEN 29.9 mg/dL (7-18); CO2 29 mmol/L (21-32); MAGNESIUM 2.2 mg/dL (1.8-2.4)
[2021-01-17 13:11] LABS: BILIRUBIN,TOTAL 1.5 mg/dL (0.2-1); PHOSPHOROUS 2.3 mg/dL (2.5-4.9); SGOT/AST 159 U/L (15-37); SGPT/ALT 101 U/L (13-61)
[2021-01-17 13:12] LABS: ALK PHOS 58 U/L (45-117); TOT PROT 7.5 g/dl (6.4-8.2)
[2021-01-17] MEDS ORDERED: POTASSIUM CHLORIDE TABS 20 MEQ TABLET.ER (FP) PO ONE ×2 (17:22→18:00)
[2021-01-17] MEDS ORDERED: ACETAMINOPHEN 1000 MG/100 ML VIAL (NON FORMULARY) IVPB PRN (17:26)
[2021-01-17] MEDS: chlordiazePOXIDE HCL 25 MG CAPSULE PO SCH ×2 (18:07→22:03)
[2021-01-17] MEDS: SODIUM CHLORIDE 1,000 ML IV SCH (18:07)
[2021-01-17] MEDS: chlordiazePOXIDE HCL 25 MG CAPSULE PO PRN (21:08)
[2021-01-17] MEDS: QUEtiapine FUMARATE 25 MG TABLET PO ONE ×3 (21:08→22:02)
[2021-01-18] MEDS ORDERED: LORazepam 2 MG/ML SDV VIAL IVPUSH STA (00:59)
[2021-01-18] MEDS ORDERED: LORazepam 2 MG/ML SDV VIAL ONE (01:06)
[2021-01-18] MEDS: chlordiazePOXIDE HCL 25 MG CAPSULE PO PRN (03:27)
[2021-01-18] MEDS ORDERED: HALOPERIDOL LACTATE 5 MG/ML IM ONE (03:33)
[2021-01-18] MEDS: chlordiazePOXIDE HCL 25 MG CAPSULE PO SCH (05:27)
[2021-01-18 07:49] LABS: BASO % 0.3 % (0-2.0); EOS % 0.4 % (0-4.5); HEMATOCRIT 20.4 % (35.4-49); HEMOGLOBIN 7.1 GM/dL (11.7-16.9); LYMPH % 18.9 % (8-40); MCH 33.5 pg (25.7-33.7); MCHC 34.7 g/dl (32.0-35.9); MEAN CELL VOLUME 96.6 fl (80-96); MONO % 7.4 % (3.8-10.2); PLATELET COUNT 104 K/MM3 (134-434); RBC 2.11 M/mm3 (4.00-5.60); RDW 14.2 % (11.9-15.9); WHITE BLOOD COUNT 4.1 K/mm3 (4.0-10.0)
[2021-01-18 07:59] LABS: POTASSIUM 3.6 mmol/L (3.5-5.1)
[2021-01-18 08:17] LABS: BILIRUBIN,TOTAL 0.9 mg/dL (0.2-1)
[2021-01-18 08:19] LABS: MAGNESIUM 2.1 mg/dL (1.8-2.4)
[2021-01-18 08:22] LABS: CREATININE 0.7 mg/dL (0.55-1.3); PHOSPHOROUS 2.3 mg/dL (2.5-4.9)
[2021-01-18 08:27] LABS: CALCIUM 8.9 mg/dL (8.5-10.1); TOT PROT 5.4 g/dl (6.4-8.2)
[2021-01-18] MEDS: LORazepam 1 MG TABLET PO SCH ×3 (10:53→22:04)
[2021-01-18] MEDS: THIAMINE HCL 100 MG TABLET (FP) PO SCH (10:54)
[2021-01-18] MEDS: ENOXAPARIN NA (PORCINE) 40 MG/0.4 ML DISP.SYRIN SQ SCH (10:54)
[2021-01-18] MEDS: FOLIC ACID 1 MG TABLET (FP) PO SCH (10:54)
[2021-01-18 12:08] LABS: HEMATOCRIT 21.8 % (35.4-49); HEMOGLOBIN 7.4 GM/dL (11.7-16.9); MCH 33.1 pg (25.7-33.7); MEAN CELL VOLUME 97.4 fl (80-96); MEAN PLT VOLUME 9.2 fl (7.5-11.1); PLATELET COUNT 109 K/MM3 (134-434); RBC 2.23 M/mm3 (4.00-5.60); RDW 14.6 % (11.9-15.9); WHITE BLOOD COUNT 4.8 K/mm3 (4.0-10.0)
[2021-01-18] MEDS: LORazepam 1 MG TABLET PO PRN (14:37)
[2021-01-18] MEDS: PANTOPRAZOLE 40 MG TABLET PO SCH (17:01)
[2021-01-18] MEDS: SODIUM CHLORIDE 1,000 ML IV SCH (17:30)
[2021-01-18 17:43] LABS: IRON SERUM 41 ug/dL (50-175)
[2021-01-18 17:44] LABS: TOTAL IRON BINDING CAPACITY 225 ug/dL (250-450)
[2021-01-19] MEDS ORDERED: chlordiazePOXIDE HCL 25 MG CAPSULE PO SCH (05:00)
[2021-01-19 08:05] LABS: BASO % 0.4 % (0-2.0); EOS % 0.7 % (0-4.5); HEMATOCRIT 21.9 % (35.4-49); HEMOGLOBIN 7.5 GM/dL (11.7-16.9); LYMPH % 10.6 % (8-40); MCH 33.4 pg (25.7-33.7); MCHC 34.1 g/dl (32.0-35.9); MEAN CELL VOLUME 98.1 fl (80-96); MONO % 9.3 % (3.8-10.2); PLATELET COUNT 140 K/MM3 (134-434); RBC 2.23 M/mm3 (4.00-5.60); RDW 14.5 % (11.9-15.9); WHITE BLOOD COUNT 5.5 K/mm3 (4.0-10.0)
[2021-01-19 08:26] LABS: POTASSIUM 3.4 mmol/L (3.5-5.1)
[2021-01-19 08:31] LABS: ALBUMIN 3.2 g/dl (3.4-5.0); BLOOD UREA NITROGEN 13.4 mg/dL (7-18)
[2021-01-19 08:32] LABS: CALCIUM 9.2 mg/dL (8.5-10.1); MAGNESIUM 1.8 mg/dL (1.8-2.4)
[2021-01-19 08:34] LABS: CREATININE 0.8 mg/dL (0.55-1.3)
[2021-01-19 08:35] LABS: TOT PROT 5.9 g/dl (6.4-8.2)
[2021-01-19] MEDS: FOLIC ACID 1 MG TABLET (FP) PO SCH (10:27)
[2021-01-19] MEDS: ENOXAPARIN NA (PORCINE) 40 MG/0.4 ML DISP.SYRIN SQ SCH (10:28)
[2021-01-19] MEDS: THIAMINE HCL 100 MG TABLET (FP) PO SCH (10:28)
[2021-01-19] MEDS: PANTOPRAZOLE 40 MG TABLET PO SCH (10:28)
[2021-01-19] MEDS: LORazepam 1 MG TABLET PO PRN ×2 (10:29→16:00)
[2021-01-19] MEDS: SODIUM CHLORIDE 1,000 ML IV SCH (11:00)
[2021-01-19] MEDS: LORazepam 1 MG TABLET PO SCH ×3 (12:00→22:58)
[2021-01-20] MEDS ORDERED: chlordiazePOXIDE HCL 10 MG CAPSULE PO PRN
[2021-01-20] MEDS ORDERED: chlordiazePOXIDE HCL 10 MG CAPSULE PO SCH (05:00)
[2021-01-20] MEDS: LORazepam 1 MG TABLET PO SCH ×5 (05:12→22:51)
[2021-01-20 07:56] LABS: BASO % 0.4 % (0-2.0); HEMATOCRIT 23.3 % (35.4-49); HEMOGLOBIN 7.9 GM/dL (11.7-16.9); LYMPH % 11.6 % (8-40); MCH 33.6 pg (25.7-33.7); MCHC 33.9 g/dl (32.0-35.9); MEAN CELL VOLUME 99.4 fl (80-96); MEAN PLT VOLUME 8.5 fl (7.5-11.1); MONO % 12.5 % (3.8-10.2); NEUT % 71.5 % (42.8-82.8); PLATELET COUNT 173 K/MM3 (134-434); RBC 2.34 M/mm3 (4.00-5.60); RDW 14.7 % (11.9-15.9); WHITE BLOOD COUNT 3.8 K/mm3 (4.0-10.0)
[2021-01-20 08:21] LABS: POTASSIUM 3.1 mmol/L (3.5-5.1)
[2021-01-20] MEDS ORDERED: POTASSIUM CHLORIDE TABS 20 MEQ TABLET.ER (FP) PO ONE (08:23)
[2021-01-20 08:28] LABS: ALBUMIN 3.2 g/dl (3.4-5.0); BLOOD UREA NITROGEN 9.4 mg/dL (7-18); CALCIUM 8.9 mg/dL (8.5-10.1)
[2021-01-20 08:29] LABS: MAGNESIUM 1.9 mg/dL (1.8-2.4)
[2021-01-20 08:31] LABS: BILIRUBIN,TOTAL 0.8 mg/dL (0.2-1); CREATININE 0.8 mg/dL (0.55-1.3); TOT PROT 5.8 g/dl (6.4-8.2)
[2021-01-20] MEDS: PANTOPRAZOLE 40 MG TABLET PO SCH (09:46)
[2021-01-20] MEDS: THIAMINE HCL 100 MG TABLET (FP) PO SCH (09:46)
[2021-01-20] MEDS: FOLIC ACID 1 MG TABLET (FP) PO SCH (09:46)
[2021-01-20] MEDS: ENOXAPARIN NA (PORCINE) 40 MG/0.4 ML DISP.SYRIN SQ SCH (09:47)
[2021-01-20] MEDS: SODIUM CHLORIDE 1,000 ML IV SCH (18:10)
[2021-01-20] MEDS ORDERED: LORazepam 2 MG/ML SDV VIAL IVPUSH ONE (20:08)
[2021-01-20] MEDS: POTASSIUM CHLORIDE TABS 20 MEQ TABLET.ER (FP) PO SCH (22:51)
[2021-01-21] MEDS ORDERED: LORazepam 0.5 MG TABLET PO PRN
[2021-01-21] MEDS ORDERED: chlordiazePOXIDE HCL 10 MG CAPSULE PO SCH (05:00)
[2021-01-21] MEDS: LORazepam 0.5 MG TABLET PO SCH ×4 (05:25→22:37)
[2021-01-21 07:30] LABS: BASO % 0.4 % (0-2.0); EOS % 2.2 % (0-4.5); HEMATOCRIT 23.2 % (35.4-49); HEMOGLOBIN 8.1 GM/dL (11.7-16.9); LYMPH % 7.9 % (8-40); MCHC 34.8 g/dl (32.0-35.9); MEAN CELL VOLUME 97.7 fl (80-96); MEAN PLT VOLUME 8.1 fl (7.5-11.1); MONO % 15.1 % (3.8-10.2); NEUT % 74.4 % (42.8-82.8); PLATELET COUNT 211 K/MM3 (134-434); RBC 2.38 M/mm3 (4.00-5.60); RDW 15.4 % (11.9-15.9); WHITE BLOOD COUNT 4.8 K/mm3 (4.0-10.0)
[2021-01-21 07:50] LABS: POTASSIUM 3.3 mmol/L (3.5-5.1)
[2021-01-21 08:02] LABS: CALCIUM 8.6 mg/dL (8.5-10.1)
[2021-01-21 08:03] LABS: ALBUMIN 3.1 g/dl (3.4-5.0); BLOOD UREA NITROGEN 7.5 mg/dL (7-18); MAGNESIUM 1.8 mg/dL (1.8-2.4)
[2021-01-21 08:06] LABS: BILIRUBIN,TOTAL 0.7 mg/dL (0.2-1); CREATININE 0.8 mg/dL (0.55-1.3)
[2021-01-21 08:08] LABS: TOT PROT 5.5 g/dl (6.4-8.2)
[2021-01-21] MEDS: PANTOPRAZOLE 40 MG TABLET PO SCH (10:30)
[2021-01-21] MEDS: POTASSIUM CHLORIDE TABS 20 MEQ TABLET.ER (FP) PO SCH ×2 (10:30→21:28)
[2021-01-21] MEDS: ENOXAPARIN NA (PORCINE) 40 MG/0.4 ML DISP.SYRIN SQ SCH (10:31)
[2021-01-21] MEDS: FOLIC ACID 1 MG TABLET (FP) PO SCH (10:31)
[2021-01-21] MEDS: THIAMINE HCL 100 MG TABLET (FP) PO SCH (10:31)
[2021-01-21] MEDS: POLYETHYLENE GLYCOL 3350 119 GM BTL PO SCH (12:57)
[2021-01-21 16:19] LABS: HEP B CORE AB, TOT Negative (Negative)
[2021-01-21] MEDS: SODIUM CHLORIDE 1,000 ML IV SCH (18:39)
[2021-01-21] MEDS: MELATONIN 1 MG TABLET PO SCH (21:28)
[2021-01-22] MEDS ORDERED: chlordiazePOXIDE HCL 10 MG CAPSULE PO ONE (05:00)
[2021-01-22] MEDS ORDERED: LORazepam 0.5 MG TABLET PO ONE (05:00)
[2021-01-22 06:29] LABS: BASO % 0.6 % (0-2.0); EOS % 4.8 % (0-4.5); HEMATOCRIT 25.7 % (35.4-49); HEMOGLOBIN 8.8 GM/dL (11.7-16.9); LYMPH % 10.8 % (8-40); MCH 33.8 pg (25.7-33.7); MCHC 34.3 g/dl (32.0-35.9); MEAN CELL VOLUME 98.7 fl (80-96); MEAN PLT VOLUME 8.2 fl (7.5-11.1); MONO % 18.6 % (3.8-10.2); NEUT % 65.2 % (42.8-82.8); PLATELET COUNT 244 K/MM3 (134-434); RDW 15.7 % (11.9-15.9); WHITE BLOOD COUNT 3.7 K/mm3 (4.0-10.0)
[2021-01-22 07:03] LABS: POTASSIUM 3.6 mmol/L (3.5-5.1)
[2021-01-22 07:05] LABS: CALCIUM 8.5 mg/dL (8.5-10.1)
[2021-01-22 07:06] LABS: ALBUMIN 3.2 g/dl (3.4-5.0); BLOOD UREA NITROGEN 4.9 mg/dL (7-18); MAGNESIUM 1.9 mg/dL (1.8-2.4)
[2021-01-22 07:09] LABS: CREATININE 0.7 mg/dL (0.55-1.3)
[2021-01-22 07:10] LABS: BILIRUBIN,TOTAL 0.7 mg/dL (0.2-1)
[2021-01-22] MEDS ORDERED: POTASSIUM CHLORIDE TABS 20 MEQ TABLET.ER (FP) PO ONE (09:15)
[2021-01-22] MEDS: POLYETHYLENE GLYCOL 3350 119 GM BTL PO SCH (09:56)
[2021-01-22] MEDS: THIAMINE HCL 100 MG TABLET (FP) PO SCH (09:56)
[2021-01-22] MEDS: FOLIC ACID 1 MG TABLET (FP) PO SCH (09:56)
[2021-01-22] MEDS: POTASSIUM CHLORIDE TABS 20 MEQ TABLET.ER (FP) PO SCH ×2 (09:56→21:04)
[2021-01-22] MEDS: ENOXAPARIN NA (PORCINE) 40 MG/0.4 ML DISP.SYRIN SQ SCH (09:56)
[2021-01-22] MEDS: PANTOPRAZOLE 40 MG TABLET PO SCH (09:56)
[2021-01-22] MEDS ORDERED: ARTIFICIAL TEARS (POLYVINYL ALCOHOL) OPTH DROPS OU PRN (10:14)
[2021-01-22] MEDS: CIPROFLOXACIN HCL 0.3% OPHTH 2.5ML BOTTLE OU SCH ×3 (15:28→21:05)
[2021-01-22] MEDS: SODIUM CHLORIDE 1,000 ML IV SCH (17:39)
[2021-01-22] MEDS: MELATONIN 1 MG TABLET PO SCH (21:02)
[2021-01-23] MEDS ORDERED: LORazepam 0.5 MG TABLET PO ONE (03:13)
[2021-01-23] MEDS: CIPROFLOXACIN HCL 0.3% OPHTH 2.5ML BOTTLE OU SCH ×4 (06:14→17:27)
[2021-01-23 07:45] LABS: BASO % 0.4 % (0-2.0); EOS % 5.1 % (0-4.5); HEMATOCRIT 25.1 % (35.4-49); HEMOGLOBIN 8.5 GM/dL (11.7-16.9); LYMPH % 10.2 % (8-40); MCH 33.3 pg (25.7-33.7); MCHC 33.9 g/dl (32.0-35.9); MEAN CELL VOLUME 98.5 fl (80-96); MEAN PLT VOLUME 8.1 fl (7.5-11.1); MONO % 22.3 % (3.8-10.2); PLATELET COUNT 260 K/MM3 (134-434); RBC 2.55 M/mm3 (4.00-5.60); RDW 15.2 % (11.9-15.9); WHITE BLOOD COUNT 3.8 K/mm3 (4.0-10.0)
[2021-01-23 07:57] LABS: POTASSIUM 3.6 mmol/L (3.5-5.1)
[2021-01-23 08:14] LABS: ALBUMIN 3.1 g/dl (3.4-5.0); BLOOD UREA NITROGEN 5.6 mg/dL (7-18); CALCIUM 8.8 mg/dL (8.5-10.1); MAGNESIUM 1.8 mg/dL (1.8-2.4)
[2021-01-23 08:16] LABS: CREATININE 0.8 mg/dL (0.55-1.3)
[2021-01-23 08:18] LABS: BILIRUBIN,TOTAL 0.8 mg/dL (0.2-1); TOT PROT 5.8 g/dl (6.4-8.2)
[2021-01-23] MEDS: POTASSIUM CHLORIDE TABS 20 MEQ TABLET.ER (FP) PO ONE ×2 (09:16→09:17)
[2021-01-23] MEDS: POLYETHYLENE GLYCOL 3350 119 GM BTL PO SCH (09:17)
[2021-01-23] MEDS: PANTOPRAZOLE 40 MG TABLET PO SCH (09:17)
[2021-01-23] MEDS: ENOXAPARIN NA (PORCINE) 40 MG/0.4 ML DISP.SYRIN SQ SCH (09:17)
[2021-01-23] MEDS: THIAMINE HCL 100 MG TABLET (FP) PO SCH (09:17)
[2021-01-23] MEDS: FOLIC ACID 1 MG TABLET (FP) PO SCH (09:18)
[2021-01-23] MEDS: POTASSIUM CHLORIDE TABS 20 MEQ TABLET.ER (FP) PO SCH (09:18)
[2021-01-23 11:33] LABS: ANISOCYTOSIS 1+; MACROCYTOSIS 1+; OVALOCYTE 1+; PLATELET ESTIMATE NORMAL; ROULEAU 1+
[2021-01-23 18:54] VITALS: BP 139/87; PULSE 86; TEMP 97.4
[2021-01-23] MEDS ORDERED: QUEtiapine FUMARATE 25 MG TABLET PO SCH ×2 (22:00)
== END 2021-01-23 20:27 | disposition short-term general hospital (02) | DRG 200 ==
LOC: JER 09:55 → JERBED 16:33 → J4W 20:33
PROVIDERS: ADMIT Internal Medicine; ATTEND Nurse Practitioner Acute Care
DX: S27.0XXA Traumatic pneumothorax, initial encounter (principal); S22.41XA Multiple fractures of ribs, right side, initial encounter for closed fracture; F10.230 Alcohol dependence with withdrawal, uncomplicated; F10.221 Alcohol dependence with intoxication delirium; F17.210 Nicotine dependence, cigarettes, uncomplicated; Z85.038 Personal history of other malignant neoplasm of large intestine; K70.9 Alcoholic liver disease, unspecified; D64.9 Anemia, unspecified; K76.0 Fatty (change of) liver, not elsewhere classified; W19.XXXA Unspecified fall, initial encounter; Y93.9 Activity, unspecified; Y92.89 Other specified places as the place of occurrence of the external cause; Y99.9 Unspecified external cause status; F32.9 Major depressive disorder, single episode, unspecified
CPT/HCPCS: 36415; 70450-TC; 71045-TC-FY; 71046-TC-FY; 71260-TC; 72125-TC; 74177-TC; 80053; 80061; 82550; 82553; 83036; 83540; 83550; 83721; 83735; 84100; 84443; 84484; 85025; 85027; 85610; 85730; 86704; 86706; 86707; 86708; 86709; 87340; 93005; 93010; 93306-TC; 97116-GP; 97161-GP; 99285-25; C9803; Q9967; U0003